=== PATIENT | female | born 1955 | race Caucasian/White ===

== ENCOUNTER 2017-04-28 07:33 | Inpatient (IN) | payer MEDICARE, OTHER ==
[2017-04-25 17:08] VITALS: BMI 31.2
[~2017-04-28] VITALS: Ht 154.9 cm; Wt 69.0 kg
[2017-04-28] VITALS (30 sets, daily range): BP systolic 103–156; BP diastolic 64–95; PULSE 55–72; RESP 10–22; Ht 154.9 cm; Wt 69.0 kg
[~2017-04-28 07:33] MED LIST: DESFLURANE 15 MIN ONE
[2017-04-28] MEDS ORDERED: TRANEXAMIC ACID 2,000 MG in SOD CHLORIDE 0.9% 100 ML IV ONE ×2 (08:00→13:00)
[2017-04-28] MEDS ORDERED: CEFAZOLIN 2 GM/50 ML (PMX) 50 ML IVPB SCH (08:00)
[2017-04-28] MEDS ORDERED: TEMA30CA PO (08:06)
[2017-04-28] MEDS ORDERED: HYDR-902 PO (08:08)
[2017-04-28] MEDS ORDERED: GABA300C16 PO (08:08)
[2017-04-28] MEDS ORDERED: NABU-83 PO (08:09)
[2017-04-28] MEDS ORDERED: DULO60CA59 PO (08:09)
[2017-04-28] MEDS ORDERED: NAPR-688 PO (08:09)
[2017-04-28] MEDS ORDERED: ALPR0.5T6 PO (08:10)
[2017-04-28] MEDS ORDERED: ENAL10TA PO (08:10)
[2017-04-28] MEDS ORDERED: CITA20TA11 PO (08:11)
[2017-04-28] MEDS ORDERED: CELE200C PO (08:11)
--- NOTE | 2017-04-28 10:47 | HPN ---
Date/Time of Note Date/Time of Note DATE: 04/28/17 TIME: 10:47 Interval H&P Admission Note Pt. seen H&P reviewed: No system changes ROMÁN MARTIN MD Apr 28, 2017 10:47
[2017-04-28] MEDS ORDERED: MIDAZOLAM 1 MG/ML 2 ML INJ ONE (11:01)
[2017-04-28] MEDS ORDERED: BACITRACIN 50000 UNITS INJ IRR ONE (11:03)
[2017-04-28] MEDS ORDERED: FENTAnyl 50 MCG/ML VIAL ONE ×2 (11:04→12:36)
[2017-04-28] MEDS ORDERED: POLYMYXIN B 500000 UNIT INJ ONE (11:12)
[2017-04-28] MEDS ORDERED: POLYMYXIN/BACITRACIN 1L IRRIG ONE (11:12)
[2017-04-28] MEDS ORDERED: BUPIVACAINE 0.5%/EPI (SDV) 10 ML INJ ONE (11:15)
[2017-04-28] MEDS ORDERED: BUPIVACAINE 0.5% (SDV) 30 ML, EPINEPHrine 0.3 MG, KETOROLAC 30 MG, CLONIDINE 100 MCG, S... IRR ONE ×6 (11:30)
[2017-04-28] MEDS ORDERED: KETOROLAC 30 MG INJ IV ONE (12:00)
[2017-04-28] MEDS ORDERED: CLONIDINE 1000 MCG INJ INJ ONE (12:00)
[2017-04-28] MEDS ORDERED: CEFUROXIME INJ ONE (12:00)
[2017-04-28] MEDS ORDERED: EPINEPHrine 1 MG INJ IM ONE (12:00)
[2017-04-28] MEDS ORDERED: BUPIVACAINE 0.5% 30 ML VIAL INJ ONE (12:00)
[2017-04-28] MEDS ORDERED: BUPIVACAINE 0.5% (SDV) 30 ML INJ ONE (13:06)
[2017-04-28] MEDS ORDERED: KETOROLAC 30 MG INJ ONE (13:06)
[2017-04-28] MEDS ORDERED: EPINEPHrine 0.1 MG/ML SYG ONE (13:07)
[2017-04-28] MEDS ORDERED: SUGAMMADEX SODIUM 200 MG/2 ML VIAL IV ONE (13:37)
[2017-04-28] MEDS ORDERED: ROCURONIUM 50 MG INJ ONE (13:37)
[2017-04-28] MEDS ORDERED: SUCCINYLCHOLINE CHLORIDE 100 MG/5 ML SYG IV ONE (13:37)
[2017-04-28] MEDS ORDERED: CEFAZOLIN 1 GM INJ ONE (13:37)
[2017-04-28] MEDS ORDERED: PROPOFOL 40 ML ONE (13:37)
[2017-04-28] MEDS ORDERED: LIDOCAINE 2% (SDV) 5 ML INJ ONE (13:37)
[2017-04-28] MEDS ORDERED: MEPERIDINE 25 MG INJ IV PRN (14:00)
[2017-04-28] MEDS ORDERED: HYDROmorphONE (0.2 MG/ML) 10ML SYG IV PRN ×2 (14:00)
[2017-04-28] MEDS ORDERED: FENTAnyl 50 MCG/ML VIAL IV PRN ×2 (14:00)
[2017-04-28] MEDS ORDERED: TRANEXAMIC ACID 1,000 MG in SOD CHLORIDE 0.9% 100 ML IV ONE (14:00)
[2017-04-28] MEDS ORDERED: DIPHENHYDRAMINE 50 MG INJ IV PRN (14:00)
[2017-04-28] MEDS ORDERED: ONDANSETRON 4 MG INJ IV PRN (14:00)
[2017-04-28] MEDS ORDERED: METOCLOPRAMIDE 10 MG INJ IV PRN (14:00)
[2017-04-28] MEDS: HYDROmorphONE (0.2 MG/ML) 10ML SYG IV PRN ×3 (14:31→14:55)
--- NOTE | 2017-04-28 14:37 | SIPON ---
Date/Time of Note Date/Time of Note DATE: 04/28/17 TIME: 14:34 Operative Report Preoperative Diagnosis Left hip osteoarthritis Postoperative Diagnosis Same Operation/Procedure Performed 1. Left total hip arthroplasty 2. Interpretation of AP pelvis X-ray 3. Interpretation of left hip xray 2 views Surgeon Samina Martin MD medical assisting instructor: EDILMA KO PA-C Anesthesia Type: general Estimated Blood Loss: other Transfusion Required: no Specimen: none Grafts/Implants Amin Nephew 32mm ceramic/+0 head, 50mm Acetabulum,20mm cancellous screwm Size 4 STD offset anthology stem Complications: no ROMÁN MARTIN MD Apr 28, 2017 14:37
[2017-04-28] MEDS ORDERED: NALOXONE (0.4 MG/ML) INJ IV PRN (15:00)
[2017-04-28] MEDS ORDERED: NACL 0.9% 3 ML SYG IV SCH (15:00)
[2017-04-28] MEDS: ONDANSETRON 4 MG INJ IV SCH ×2 (15:00→20:51)
[2017-04-28] MEDS ORDERED: CEFAZOLIN 1 GM/50 ML (PMX) 50 ML IVPB ONE (15:13)
[2017-04-28] MEDS: CEFAZOLIN 1 GM/50 ML (PMX) 50 ML IVPB SCH ×2 (15:15→21:59)
[2017-04-28] MEDS: FENTAnyl 50 MCG/ML VIAL IV PRN ×2 (15:24→20:32)
[2017-04-28] MEDS: KETOROLAC 15 MG INJ IV PRN ×2 (15:28→20:47)
--- NOTE | 2017-04-28 16:10 | RADRPT ---
PROCEDURE: Intraoperative imaging of the left hip with fluoroscopy. CLINICAL INDICATION: Left hip pain. Intraoperative. TECHNIQUE: 17 images of the left hip were obtained in the operating room with an image intensifier . No radiologist was in attendance. 0.6 minutes of fluoroscopy time was used. COMPARISON: No prior study is available for comparison. FINDINGS: Images demonstrate placement of a total left hip arthroplasty. IMPRESSION: 1. Satisfactory intraoperative imaging of the left hip. RPTAT: QQ .Matthias Ferguson MD, MD Date Time Electronically viewed and signed by .Matthias Ferguson MD, MD on 04/28/2017 16:09 .R/
--- NOTE | 2017-04-28 16:22 | RADRPT ---
PROCEDURE: XR Pelvis. CLINICAL INDICATION: Pelvic pain. Postop. TECHNIQUE: Single AP view of the pelvis. COMPARISON: Prior study done earlier the same day. FINDINGS: There are bilateral total hip arthroplasties which appears satisfactory. There is no fracture, dislo cation, or loosening. There is gas in the soft tissues of the left hip related to the recent surgery . There is no lytic or blastic lesion. There is a Quezada catheter in the bladder. The sacroiliac joints are grossly unremarkable. IMPRESSION: 1. Satisfactory postoperative appearance of both hips. RPTAT: QQ .Matthias Ferguson MD, MD Date Time Electronically viewed and signed by .Matthias Ferguson MD, on 04/28/2017 16:21 .R/
--- NOTE | 2017-04-28 16:30 | RADRPT ---
PROCEDURE: XR Hip. CLINICAL INDICATION: 61 years of age, female. Postop. TECHNIQUE: One-view of the left hip. COMPARISON: Pelvic x-rays April 28, 2017 FINDINGS: There is a noncemented left total hip replacement that has the expected immediate postoperative appe arance. Normal alignment in the frontal projection. There is soft tissue gas over the lateral proxim al femur from recent surgery. IMPRESSION: Left total hip replacement with the expected immediate postoperative appearance. RPTAT: HCTS Physician Justus Date Time Electronically viewed and signed by Jhoan Rodriguez Physician on 04/28/2017 16:30 CS/
[2017-04-28] MEDS: oxyCODONE 5 MG TAB PO PRN ×2 (18:33→23:32)
[2017-04-28] MEDS: traMADol 50 MG TAB PO SCH (21:59)
[2017-04-29 00:12] VITALS: BP 119/70; RESP 16
[2017-04-29] MEDS: ONDANSETRON 4 MG INJ IV SCH ×2 (03:00→08:47)
[2017-04-29] MEDS: KETOROLAC 15 MG INJ IV PRN ×3 (03:22→18:05)
[2017-04-29 05:27] LABS: BASOPHILS % 0.3 % (0.0-2.0); EOSINOPHILS # 0.1 10^3/ul (0.0-0.5); HEMATOCRIT 31.9 % (37.0-47.0); HEMOGLOBIN 10.6 g/dl (12.0-16.0); LYMPHOCYTES # 1.2 10^3/ul (0.8-2.9); LYMPHOCYTES % 11.5 % (15.0-51.0); MEAN CORPUSCULAR HEMOGLOBIN 30.4 pg (29.0-33.0); MEAN CORPUSCULAR HGB CONC 33.2 g/dl (32.0-37.0); MEAN CORPUSCULAR VOLUME 91.4 fl (82.0-101.0); MEAN PLATELET VOLUME 12.2 fl (7.4-10.4); MONOCYTE # 0.7 10^3/ul (0.3-0.9); MONOCYTES % 6.6 % (0.0-11.0); NEUTROPHIL # 8.4 10^3/ul (1.6-7.5); NEUTROPHILS % 80.3 % (39.0-77.0); PLATELET COUNT 137 10^3/UL (140-415); RED BLOOD COUNT 3.49 10^6/ul (4.20-5.40); RED CELL DISTRIBUTION WIDTH 13.6 % (11.5-14.5); WHITE BLOOD COUNT 10.4 10^3/ul (4.8-10.8)
[2017-04-29 05:37] LABS: INR 1.15; PROTIME 14.7 Sec (12.2-14.2); PT RATIO 1.1
[2017-04-29 05:50] LABS: CREATININE 0.44 mg/dl (0.44-1.00); POTASSIUM 3.4 mmol/L (3.5-5.1)
[2017-04-29] MEDS: CEFAZOLIN 1 GM/50 ML (PMX) 50 ML IVPB SCH (06:13)
[2017-04-29] MEDS: PANTOPRAZOLE (EC) 40 MG TAB PO SCH (06:13)
--- NOTE | 2017-04-29 06:21 | PN ---
Date/Time of Note Date/Time of Note DATE: 04/29/17 TIME: 06:20 Assessment/Plan Lines/Catheters IV Catheter Type (from Nrsg): Peripheral IV Hicks in Place (from Nrsg): Yes Assessment/Plan Assessment/Plan s/p Left JACI POD 1 WBAT. Work with PT. D/c hicks. Finish post op Ancef. SCD. ASA 325mg PO BID x 6 weeks. Subjective 24 Hr Interval Summary Patient doing well. Complaining of pain. Has not worked with PT. Exam/Review of Systems Vital Signs Vitals Vital Signs Date Time Temp Pulse Resp B/P Pulse Ox O2 Delivery O2 Flow Rate FiO2 04/29/17 00:12 98.0 61 16 119/70 98 04/28/17 18:45 Nasal Cannula 2.0 Intake and Output 04/28/17 04/28/17 04/29/17 15:00 23:00 07:00 Intake Total 1500 ml 650 ml 800 ml Output Total 50 ml 550 ml 800 ml Balance 1450 ml 100 ml 0 ml Exam Free Text/Dictation Left Hip: dressing clean and dry. Calf is soft. SCD on. 5/5 Q/Gs/TA. Palpable pulses. Results Result Diagram: 04/29/17 0439 04/29/17 0439 ROMÁN MARTIN MD Apr 29, 2017 06:21
[2017-04-29] MEDS: oxyCODONE 5 MG TAB PO PRN ×4 (06:59→21:21)
[2017-04-29 08:00] VITALS: BP 117/71; RESP 19
[2017-04-29] MEDS: ASPIRIN (EC) 325 MG TAB PO SCH ×2 (08:46→20:42)
[2017-04-29] MEDS: traMADol 50 MG TAB PO SCH ×3 (08:46→20:42)
--- NOTE | 2017-04-29 09:08 | OPR ---
DATE OF OPERATION: 04/28/2017 PREOPERATIVE DIAGNOSIS: Left hip osteoarthritis. POSTOPERATIVE DIAGNOSIS: Left hip osteoarthritis. OPERATION PERFORMED: 1. Left total hip arthroplasty, CPT code 20512. 2. Interpretation of AP pelvis x-ray. 3. Interpretation of left hip x-ray, 2 views. 4. Computer-assisted navigational procedure, CPT code 56248. SURGEON: Dr. Bui. [employer]: 1. Saul Dick PA-C. 2. Jovi Calvin MD. ANESTHESIOLOGIST: Dr. Davis. ANESTHESIA: Spinal with general. ESTIMATED BLOOD LOSS: 400 mL. COMPLICATIONS: None. SPECIMENS: Resected bone. DISPOSITION: To PACU in stable condition. IMPLANT USED: A [employer]hew 32 mm ceramic +0 head and neck, 50 mm acetabular cup with 120 mm cancellous screw, size 4 standard offset anthology stem. INDICATIONS FOR PROCEDURE: This is a 61-year-old female with end- stage osteoarthritis of the left hip with failed nonoperative management. Risks, benefits, alternatives to surgical intervention were discussed with the patient. Informed consent was obtained. The risks of surgery include, but are not limited to, infection, deep venous thrombosis, pulmonary embolism, leg-length discrepancy, fracture, damage to neurovascular structures, including the lateral femoral cutaneous nerve, femoral nerve and its branches, iliac artery and vein, femoral artery and vein, loosening prosthesis, wear of prosthesis, need for revision surgery, heart attack, stroke, need for blood transfusion, risks associated with anesthesia and even . OPERATIVE PROCEDURE: Patient was met in the preop suite. The correct operative site was confirmed and marked. Patient was then brought into the operating room. After induction general anesthesia, she was placed in the supine position on the [place] table. The left lower extremity was prepped and draped in the usual sterile fashion. Before starting, a time-out was taken to identify the correct operative site and confirm that preoperative antibiotics consisting of 1 g of IV Ancef along with 1 g of tranexamic acid were given. At this point, an 8 cm incision was then made approximately 2 cm lateral and 1 cm distal to the ASIS. The incision was then carried down to the fascia. The fascia was then incised and 2 Allis clamps were placed. The interval was then bluntly developed and the tensor fascia maximo was then retracted laterally. The lateral circumflex vessels were then identified and coagulated. The anterior capsule was then visualized. A capsulotomy was then performed. At this point, markings were made for the napkin ring osteotomy of the femoral neck. Using a saw, the initial osteotomy was then made and completed with the use of osteotome. A Zee was then used to remove the napkin ring. The corkscrew was then placed in the femoral head and the head was then removed. It was sized to 49 mm. Appropriate acetabular retractors were then placed. All osteophytes, labrum and foveal tissue were then removed. Acetabular reamings were then begun using a 46 mm reamer going up to a 50 mm reamer after medializing. A trial 50 mm cup placed in 45 degrees of abduction, along with 20 degrees of anteversion was impacted. Two views of the left hip were taken, which demonstrated the clip to be in appropriate position. At this point, the trial was removed. The acetabular was pulse lavaged and dried. The appropriate size 50 mm cup was then impacted into place under fluoroscopic imaging. A 20 mm screw was then placed in the posterior-superior quadrant. Again x-rays were taken, which demonstrated the cup to be in appropriate abduction and anteversion. A 32 mm acetabular liner was then impacted. Final x-rays of the left hip were then taken and saved. At this point, the femoral lift was used. Retractors were placed and the femoral release was performed. Using a box osteotome followed by canal finder, sequential broaching was begun with a 0 broach going up to a size 4 broach. A trial 4 standard offset stem along with a 32 mm -3 head and neck were placed. The hip was then reduced. AP x-rays of the pelvis were taken along with 2 views of the left hip. The hip was noted to be slightly short. At this point, the 32 mm -3 head and neck were removed and a 32 mm +0 head and neck were placed. The hip was again reduced and noted to have appropriate leg lengths with appropriate position of the femoral component. No fractures were seen. At this point, the hip was then taken through range of motion, noted to be stable to greater than 120 degrees of external rotation. The trial components were removed and the final components were then placed. The hip was reduced with unchanged stability. The wound was thoroughly irrigated. The cocktail was then injected. The capsule and the fascia were closed using a #1 Vicryl in interrupted [id number] fashion followed by closure of the subcutaneous tissue with 2-0 Vicryl and the skin with 3-0 Monocryl in subcuticular fashion. Steri-Strips were applied. There were no complications. Patient was awakened, taken to the postoperative care unit in stable condition POSTOPERATIVE CARE: The patient will be weightbearing as tolerated. She will work with Physical Therapy. She will receive 2 additional doses of IV Ancef. She will receive aspirin 325 mg p.o. b.i.d. for 6 weeks, along with SCDs while in the hospital. Upon discharge, she will follow up in my office within 2 weeks postoperatively. She will receive multimodal pain management. Dictated By: Geneva Bui MD /[email or web address]/lyubov /Document#: [id number]
[2017-04-29] MEDS: HYDROCODONE/APAP (5/325) TAB PO PRN ×2 (09:58→16:45)
[2017-04-29 15:15] VITALS: BP 107/68; RESP 19
[2017-04-29 20:43] VITALS: BP 135/84; RESP 20
[2017-04-29] MEDS: ZOLPIDEM 5 MG TAB PO PRN ×2 (21:21→22:40)
[2017-04-30 05:19] LABS: BASOPHIL # 0.1 10^3/ul (0.0-0.1); BASOPHILS % 0.5 % (0.0-2.0); EOSINOPHILS # 0.1 10^3/ul (0.0-0.5); EOSINOPHILS % 1.4 % (0.0-7.0); HEMATOCRIT 32.4 % (37.0-47.0); HEMOGLOBIN 10.5 g/dl (12.0-16.0); LYMPHOCYTES # 1.1 10^3/ul (0.8-2.9); LYMPHOCYTES % 11.5 % (15.0-51.0); MEAN CORPUSCULAR HEMOGLOBIN 29.2 pg (29.0-33.0); MEAN CORPUSCULAR HGB CONC 32.4 g/dl (32.0-37.0); MEAN CORPUSCULAR VOLUME 90.3 fl (82.0-101.0); MEAN PLATELET VOLUME 12.2 fl (7.4-10.4); MONOCYTE # 0.6 10^3/ul (0.3-0.9); MONOCYTES % 6.6 % (0.0-11.0); NEUTROPHIL # 7.4 10^3/ul (1.6-7.5); NEUTROPHILS % 79.6 % (39.0-77.0); PLATELET COUNT 141 10^3/UL (140-415); RED BLOOD COUNT 3.59 10^6/ul (4.20-5.40); RED CELL DISTRIBUTION WIDTH 13.5 % (11.5-14.5); WHITE BLOOD COUNT 9.4 10^3/ul (4.8-10.8)
[2017-04-30 05:29] LABS: INR 1.15; PROTIME 14.7 Sec (12.2-14.2); PT RATIO 1.1
[2017-04-30 05:38] LABS: CALCIUM 8.6 mg/dl (8.4-10.2); CREATININE 0.44 mg/dl (0.44-1.00); POTASSIUM 3.5 mmol/L (3.5-5.1)
[2017-04-30] MEDS: PANTOPRAZOLE (EC) 40 MG TAB PO SCH (06:03)
[2017-04-30] MEDS: KETOROLAC 15 MG INJ IV PRN ×3 (06:03→18:32)
[2017-04-30 07:34] VITALS: BP 155/85; RESP 20
[2017-04-30] MEDS: HYDROCODONE/APAP (5/325) TAB PO PRN ×3 (07:49→21:36)
[2017-04-30 08:40] LABS: ADD UMIC YES; UR ASCORBIC ACID NEGATIVE (NEGATIVE); UR BACTERIA FEW /HPF (NONE SEEN); UR BILIRUBIN (Dip) NEGATIVE (NEGATIVE); UR BLOOD (Dip) 3+ mg/dL (NEGATIVE); UR CLARITY CLEAR (CLEAR); UR COLOR STRAW (YELLOW); UR GLUCOSE (Dip) NEGATIVE (NEGATIVE); UR KETONES (Dip) 1+ mg/dL (NEGATIVE); UR LEUKOCYTE ESTERASE (Dip) TRACE Leu/ul (NEGATIVE); UR MUCUS MODERATE /HPF (NONE SEEN); UR NITRITE (Dip) NEGATIVE (NEGATIVE); UR RBC 20 /HPF (0-5); UR SPECIFIC GRAVITY (Dip) 1.006 (1.003-1.030); UR TOTAL PROTEIN (Dip) NEGATIVE (NEGATIVE); UR UROBILINOGEN (Dip) NEGATIVE (NEGATIVE)
[2017-04-30] MEDS: traMADol 50 MG TAB PO SCH ×3 (09:06→20:42)
[2017-04-30] MEDS: ASPIRIN (EC) 325 MG TAB PO SCH ×2 (09:06→20:42)
[2017-04-30] MEDS: oxyCODONE 5 MG TAB PO PRN ×3 (10:04→20:04)
[2017-04-30 20:10] VITALS: BP 117/71; RESP 18
[2017-04-30] MEDS: ZOLPIDEM 5 MG TAB PO PRN (22:18)
[2017-05-01] MEDS: PANTOPRAZOLE (EC) 40 MG TAB PO SCH (06:29)
[2017-05-01] MEDS: HYDROCODONE/APAP (5/325) TAB PO PRN ×3 (06:29→18:13)
[2017-05-01] MEDS: oxyCODONE 5 MG TAB PO PRN ×3 (07:09→16:04)
[2017-05-01 08:44] VITALS: BP 111/84; RESP 18
[2017-05-01] MEDS: ASPIRIN (EC) 325 MG TAB PO SCH ×2 (09:35→20:10)
[2017-05-01] MEDS: traMADol 50 MG TAB PO SCH ×3 (09:35→20:11)
[2017-05-01 10:29] LABS: BASOPHILS % 0.2 % (0.0-2.0); EOSINOPHILS # 0.1 10^3/ul (0.0-0.5); EOSINOPHILS % 1.1 % (0.0-7.0); HEMATOCRIT 34.9 % (37.0-47.0); HEMOGLOBIN 11.6 g/dl (12.0-16.0); LYMPHOCYTES # 0.9 10^3/ul (0.8-2.9); LYMPHOCYTES % 9.4 % (15.0-51.0); MEAN CORPUSCULAR HEMOGLOBIN 30.4 pg (29.0-33.0); MEAN CORPUSCULAR HGB CONC 33.2 g/dl (32.0-37.0); MEAN CORPUSCULAR VOLUME 91.6 fl (82.0-101.0); MEAN PLATELET VOLUME 11.9 fl (7.4-10.4); MONOCYTE # 0.4 10^3/ul (0.3-0.9); MONOCYTES % 4.1 % (0.0-11.0); NEUTROPHIL # 7.8 10^3/ul (1.6-7.5); NEUTROPHILS % 84.8 % (39.0-77.0); PLATELET COUNT 189 10^3/UL (140-415); RED BLOOD COUNT 3.81 10^6/ul (4.20-5.40); RED CELL DISTRIBUTION WIDTH 13.4 % (11.5-14.5); WHITE BLOOD COUNT 9.3 10^3/ul (4.8-10.8)
[2017-05-01 10:40] LABS: CALCIUM 8.7 mg/dl (8.4-10.2); CREATININE 0.48 mg/dl (0.44-1.00); POTASSIUM 3.7 mmol/L (3.5-5.1)
[2017-05-01 10:43] LABS: INR 1.02; PROTIME 13.4 Sec (12.2-14.2)
[2017-05-01 14:57] VITALS: BP 120/80; RESP 18
[2017-05-01 20:03] VITALS: BP 119/60; RESP 20
== END 2017-05-01 20:45 | disposition home health service (06) | DRG 470 ==
LOC: REC 07:33 → MS1 16:00
PROVIDERS: ADMIT Orthopaedic Surgery Adult Reconstructive Orthopaedic Surgery; ATTEND Orthopaedic Surgery Adult Reconstructive Orthopaedic Surgery
PROC: 0SRB04Z Replacement of Left Hip Joint with Ceramic on Polyethylene Synthetic Substitute, Open Approach (ICD-10-PCS; principal; 2017-04-29)
DX: M16.12 Unilateral primary osteoarthritis, left hip (principal); I10 Essential (primary) hypertension
CPT/HCPCS: 72170; 73500; 73530; 80048; 81001; 85025; 85610; 87081; 87086; 88304; 88311; 97003; 97110; 97116; 97163; 97166; 97530; 97535; C1713; C1776; J0171; J0690; J0697; J0735; J1170; J1885; J2175; J2250; J2405; J3010; J7999